=== PATIENT | male | born 1950 | race Caucasian/White ===

== ENCOUNTER → 2019-05-20 | Day surgery (SDC) | payer OTHER ==
[~2019-05-20] VITALS: Ht 180.3 cm; Wt 77.1 kg
[~2019-05-20] MED LIST: LIPITOR10 MG PO
[2019-05-20 10:00] VITALS: BP 126/75
[2019-05-20 10:15] VITALS: BP 125/65
[2019-05-20 10:24] VITALS: BP 122/64
== END | disposition home or self-care (01) ==
LOC: SDC 05-18 12:30
DX: K62.5 Hemorrhage of anus and rectum (principal); D12.5 Benign neoplasm of sigmoid colon; E78.5 Hyperlipidemia, unspecified; Z98.890 Other specified postprocedural states

== ENCOUNTER 2023-12-13 13:25 | Emergency (ER) | payer OTHER ==
[~2023-12-13] VITALS: Ht 180.3 cm; Wt 79.4 kg
[2023-12-13] MEDS ORDERED: SODIUM CHLORIDE 0.9% 1,000 ML IV ONE (14:05)
[2023-12-13] MEDS ORDERED: Ketorolac Tromethamine 15 MG/ML VIAL IV ONE (14:05)
[2023-12-13] MEDS ORDERED: IOHEXOL 300 MG/ML 100 ML VIAL IV ONE (14:10)
[2023-12-13 14:13] LABS: BASO % 0.3 % (0.0-1.0); EOS # 0.1 10*3/uL (0.0-0.4); EOS % 0.9 % (1.0-4.0); HEMATOCRIT 40.3 % (42.0-52.0); LYMPH # 2.3 10*3/uL (1.3-4.4); LYMPH % 29.9 % (27.0-41.0); MEAN CELL VOLUME 90.6 fl (80.0-94.0); MEAN CORPUSCULAR HGB 31.7 pg (27.0-31.0); MEAN PLATELET VOLUME 9.8 fl (9.6-12.3); MONO # 0.7 10*3/uL (0.1-1.0); MONO % 8.8 % (3.0-9.0); NEUT # 4.6 10*3/uL (2.3-7.9); NEUT % 59.8 % (47.0-73.0); PLATELET COUNT AUTOMATED 197 10*3/uL (130-400); RED BLOOD COUNT 4.45 10*6/uL (4.50-5.90); RED CELL DISTRI WIDTH 12.2 % (0-14.5); WHITE BLOOD COUNT 7.7 10*3/uL (4.8-10.8)
[2023-12-13 14:29] LABS: BUN 20 mg/dl (9-23); CHLORIDE 110 mmol/L (98-107); LIPASE 33 U/L (12-53); POTASSIUM 3.7 mmol/L (3.4-5.1)
[2023-12-13 14:52] LABS: BILIRUBIN Negative (Negative); BLOOD Negative (Negative); CLARITY Clear (Clear); COLOR Yellow (Yellow); GLUCOSE Negative (Negative); KETONE Negative (Negative); LEUKO ESTERASE Negative (Negative); NITRITE Negative (Negative); UROBILINOGEN 0.2 E.U./dl (0.0-1.0)
[2023-12-13 15:06] LABS: EPITHELIAL CELLS 0-2; WBC 0-2 wbc/hpf (0-5)
[2023-12-13] MEDS ORDERED: METRONIDAZOLE 500 MG TAB PO ONE (16:40)
[2023-12-13] MEDS ORDERED: Ciprofloxacin Hydrochloride 500 MG TAB PO ONE (16:40)
[2023-12-13] MEDS ORDERED: CIPRO500 MG PO (16:43)
[2023-12-13] MEDS ORDERED: METRONIDAZOLE500 M1 PO (16:43)
== END 2023-12-13 16:47 | disposition home or self-care (01) ==
LOC: ED 13:25
PROVIDERS: Emergency Medicine
DX: K57.32 Diverticulitis of large intestine without perforation or abscess without bleeding (principal); K92.1 Melena; E78.00 Pure hypercholesterolemia, unspecified

== ENCOUNTER 2024-01-08 11:40 | Emergency (ER) | payer OTHER ==
[~2024-01-08] VITALS: Ht 180.3 cm; Wt 79.4 kg
[~2024-01-08 11:40] MED LIST changes: +CIPRO500 MG PO; +METRONIDAZOLE500 M1 PO
[2024-01-08 12:29] LABS: BASO % 0.2 % (0.0-1.0); EOS % 0.2 % (1.0-4.0); HEMATOCRIT 39.4 % (42.0-52.0); LYMPH # 2.6 10*3/uL (1.3-4.4); LYMPH % 22.5 % (27.0-41.0); MEAN CELL VOLUME 88.7 fl (80.0-94.0); MEAN CORPUSCULAR HGB 31.5 pg (27.0-31.0); MEAN CORPUSCULAR HGB CONC 35.5 g/dl (33.0-37.0); MEAN PLATELET VOLUME 10.3 fl (9.6-12.3); MONO # 0.9 10*3/uL (0.1-1.0); MONO % 8.1 % (3.0-9.0); NEUT # 7.8 10*3/uL (2.3-7.9); NEUT % 68.6 % (47.0-73.0); PLATELET COUNT AUTOMATED 218 10*3/uL (130-400); RED BLOOD COUNT 4.44 10*6/uL (4.50-5.90); RED CELL DISTRI WIDTH 12.5 % (0-14.5); WHITE BLOOD COUNT 11.4 10*3/uL (4.8-10.8)
[2024-01-08 12:34] LABS: BILIRUBIN Negative (Negative); BLOOD Negative (Negative); CLARITY Clear (Clear); COLOR Yellow (Yellow); GLUCOSE Negative (Negative); KETONE Trace (Negative); LEUKO ESTERASE Negative (Negative); NITRITE Negative (Negative); UROBILINOGEN 0.2 E.U./dl (0.0-1.0)
[2024-01-08 13:26] LABS: ALKALINE PHOSPHATASE 70 U/L (46-116); BUN 10 mg/dl (9-23); CHLORIDE 108 mmol/L (98-107); POTASSIUM 3.8 mmol/L (3.4-5.1); SGPT/ALT 14 U/L (5-49); TOTAL PROTEIN 7.8 gm/dL (6.0-8.0)
[2024-01-08 13:28] LABS: MUCOUS TRACE; RBC 0-2 rbc/hpf (0-2); WBC 0-2 wbc/hpf (0-5)
[2024-01-08] MEDS ORDERED: MIRALAX17 GM PO (13:51)
== END 2024-01-08 14:05 | disposition home or self-care (01) ==
LOC: ED 11:40
PROVIDERS: Nurse Practitioner
DX: K59.00 Constipation, unspecified (principal); R30.9 Painful micturition, unspecified

== ENCOUNTER 2024-01-18 16:46 | Inpatient (IN) | payer OTHER ==
[~2024-01-18] VITALS: Ht 180.3 cm; Wt 72.8 kg
[~2024-01-18 16:46] MED LIST changes: +MIRALAX17 GM PO; +SODIUM CHLORIDE 0.9% 250 ML BAG IV ONE; +Vancomycin Hydrochloride 1,000 MG VIAL IV ONE; +Vancomycin Hydrochloride 500 MG VIAL IV ONE
[2024-01-18 16:54] VITALS: BP 133/64
[2024-01-18 18:32] LABS: BASO % 0.2 % (0.0-1.0); EOS % 0.1 % (1.0-4.0); HEMATOCRIT 38.5 % (42.0-52.0); LYMPH # 0.9 10*3/uL (1.3-4.4); LYMPH % 7.5 % (27.0-41.0); MEAN CORPUSCULAR HGB 31.5 pg (27.0-31.0); MEAN CORPUSCULAR HGB CONC 35.1 g/dl (33.0-37.0); MEAN PLATELET VOLUME 10.4 fl (9.6-12.3); MONO # 1.1 10*3/uL (0.1-1.0); NEUT % 82.6 % (47.0-73.0); PLATELET COUNT AUTOMATED 214 10*3/uL (130-400); RED BLOOD COUNT 4.28 10*6/uL (4.50-5.90); RED CELL DISTRI WIDTH 12.2 % (0-14.5); WHITE BLOOD COUNT 12.1 10*3/uL (4.8-10.8)
[2024-01-18 18:49] LABS: ALKALINE PHOSPHATASE 75 U/L (46-116); BUN 12 mg/dl (9-23); CHLORIDE 105 mmol/L (98-107); POTASSIUM 3.3 mmol/L (3.4-5.1); SGPT/ALT 15 U/L (5-49); TOTAL PROTEIN 7.8 gm/dL (6.0-8.0)
[2024-01-18 18:52] LABS: ACT PARTIAL THROMBO TIME 27.8 SECONDS (20.0-32.1)
[2024-01-18] MEDS ORDERED: Ketorolac Tromethamine 15 MG/ML VIAL IV ONE (19:00)
[2024-01-18] MEDS ORDERED: SODIUM CHLORIDE 0.9% 1,000 ML IV SCH (19:00)
[2024-01-18] MEDS ORDERED: POTASSIUM CHLORIDE 20 MEQ TAB PO ONE (19:35)
[2024-01-18 19:57] LABS: BILIRUBIN Negative (Negative); BLOOD Negative (Negative); CLARITY Clear (Clear); COLOR Yellow (Yellow); GLUCOSE Negative (Negative); KETONE 1+ (Negative); LEUKO ESTERASE Negative (Negative); NITRITE Negative (Negative); PH 5.5 (4.5-8.0); SPECIFIC GRAVITY 1.015 (1.001-1.030); UROBILINOGEN 0.2 E.U./dl (0.0-1.0)
[2024-01-18 20:04] LABS: MUCOUS 1+; RBC 0-2 rbc/hpf (0-2); WBC 0-2 wbc/hpf (0-5)
[2024-01-18] MEDS ORDERED: Piperacillin Sodium/Tazobact 50 ML IV ONE (20:35)
[2024-01-18] MEDS ORDERED: MORPHINE Sulfate 2 MG/ML SYR IV ONE (20:45)
[2024-01-18] MEDS ORDERED: Magnesium Hydroxide 30 ML UDC PO PRN (21:30)
[2024-01-18] MEDS ORDERED: ACETAMINOPHEN 325 MG TAB PO PRN (21:30)
[2024-01-18] MEDS ORDERED: Ondansetron Hydrochloride 4 MG/2 ML VIAL IV PRN (21:30)
[2024-01-18] MEDS ORDERED: MORPHINE Sulfate 2 MG/ML SYR IV PRN (21:35)
[2024-01-18] MEDS ORDERED: SODIUM CHLORIDE 0.9% 1,000 ML IV ONE (21:35)
[2024-01-18] MEDS ORDERED: Piperacillin Sodium/Tazobact 50 ML IV SCH (22:00)
[2024-01-18 23:05] VITALS: BP 107/46
[2024-01-19] MEDS ORDERED: Piperacillin Sodium/Tazobact 50 ML IV ONE (01:56)
[2024-01-19] MEDS ORDERED: Piperacillin Sodium/Tazobact 50 ML IV SCH (02:00)
[2024-01-19 03:25] VITALS: BP 100/57
[2024-01-19 05:40] VITALS: BP 106/44
[2024-01-19] MEDS ORDERED: MORPHINE Sulfate 2 MG/ML SYR IV ONE (05:55)
[2024-01-19 07:00] LABS: ALKALINE PHOSPHATASE 71 U/L (46-116); BUN 10 mg/dl (9-23); CHLORIDE 109 mmol/L (98-107); POTASSIUM 4.1 mmol/L (3.4-5.1); SGPT/ALT 18 U/L (5-49); TOTAL PROTEIN 7.3 gm/dL (6.0-8.0)
[2024-01-19 07:01] LABS: BASO % 0.3 % (0.0-1.0); EOS % 0.4 % (1.0-4.0); LYMPH # 1.6 10*3/uL (1.3-4.4); LYMPH % 14.2 % (27.0-41.0); MEAN CELL VOLUME 92.5 fl (80.0-94.0); MEAN CORPUSCULAR HGB 32.1 pg (27.0-31.0); MEAN CORPUSCULAR HGB CONC 34.7 g/dl (33.0-37.0); MEAN PLATELET VOLUME 10.7 fl (9.6-12.3); MONO # 0.6 10*3/uL (0.1-1.0); MONO % 5.3 % (3.0-9.0); NEUT # 8.9 10*3/uL (2.3-7.9); NEUT % 79.4 % (47.0-73.0); PLATELET COUNT AUTOMATED 199 10*3/uL (130-400); RED BLOOD COUNT 4.11 10*6/uL (4.50-5.90); RED CELL DISTRI WIDTH 12.7 % (0-14.5); WHITE BLOOD COUNT 11.2 10*3/uL (4.8-10.8)
[2024-01-19 07:59] VITALS: BP 121/54
[2024-01-19] MEDS ORDERED: Acetaminophen/Hydrocodone 5 MG/325 MG TABLET PO PRN (08:00)
[2024-01-19] MEDS ORDERED: Enoxaparin Sodium 40 MG/0.4 ML SYR SC SCH (10:00)
[2024-01-19] MEDS ORDERED: ACETAMINOPHEN 60 ML IV ONE (10:40)
[2024-01-19] MEDS ORDERED: HYDROmorphONE Hydrochloride 0.5 MG/0.5 ML SYRINGE IV ONE (10:40)
[2024-01-19] MEDS ORDERED: HYDROmorphONE Hydrochloride 0.5 MG/0.5 ML SYRINGE IV PRN (10:40)
[2024-01-19] MEDS ORDERED: Vancomycin Hydrochloride 1,000 MG in SODIUM CHLORIDE 0.9% 250 ML IV SCH (15:25)
[2024-01-19 16:00] VITALS: BP 113/51
[2024-01-19] MEDS ORDERED: VANCOMYCIN/WATER FOR INJ (PEG) 250 ML IV SCH (16:00)
[2024-01-19 20:00] VITALS: BP 115/51
[2024-01-20] VITALS: BP 99/37
[2024-01-20 06:44] LABS: BASO % 0.1 % (0.0-1.0); EOS % 0.4 % (1.0-4.0); HEMATOCRIT 33.7 % (42.0-52.0); LYMPH # 1.3 10*3/uL (1.3-4.4); LYMPH % 17.8 % (27.0-41.0); MEAN CELL VOLUME 93.6 fl (80.0-94.0); MEAN CORPUSCULAR HGB 31.4 pg (27.0-31.0); MEAN CORPUSCULAR HGB CONC 33.5 g/dl (33.0-37.0); MEAN PLATELET VOLUME 10.5 fl (9.6-12.3); MONO # 0.7 10*3/uL (0.1-1.0); MONO % 9.9 % (3.0-9.0); NEUT # 5.2 10*3/uL (2.3-7.9); NEUT % 71.5 % (47.0-73.0); PLATELET COUNT AUTOMATED 147 10*3/uL (130-400); RED CELL DISTRI WIDTH 12.4 % (0-14.5); WHITE BLOOD COUNT 7.3 10*3/uL (4.8-10.8)
[2024-01-20 07:15] LABS: ALKALINE PHOSPHATASE 73 U/L (46-116); BUN 7 mg/dl (9-23); CHLORIDE 108 mmol/L (98-107); POTASSIUM 3.7 mmol/L (3.4-5.1); SGPT/ALT 52 U/L (5-49)
[2024-01-20 08:00] VITALS: BP 128/54
[2024-01-20 12:00] VITALS: BP 129/80
[2024-01-20 14:30] VITALS: BP 136/58
[2024-01-20 16:00] VITALS: BP 136/58
[2024-01-20 20:00] VITALS: BP 132/53
[2024-01-21] VITALS: BP 126/59
[2024-01-21 07:06] LABS: BASO % 0.2 % (0.0-1.0); EOS # 0.1 10*3/uL (0.0-0.4); EOS % 0.9 % (1.0-4.0); LYMPH # 1.7 10*3/uL (1.3-4.4); LYMPH % 21.4 % (27.0-41.0); MEAN CELL VOLUME 92.2 fl (80.0-94.0); MEAN CORPUSCULAR HGB 31.6 pg (27.0-31.0); MEAN CORPUSCULAR HGB CONC 34.2 g/dl (33.0-37.0); MEAN PLATELET VOLUME 10.8 fl (9.6-12.3); MONO % 12.5 % (3.0-9.0); NEUT # 5.2 10*3/uL (2.3-7.9); NEUT % 64.6 % (47.0-73.0); PLATELET COUNT AUTOMATED 159 10*3/uL (130-400); RED BLOOD COUNT 3.58 10*6/uL (4.50-5.90); RED CELL DISTRI WIDTH 12.6 % (0-14.5)
[2024-01-21 07:21] LABS: BUN 7 mg/dl (9-23); CHLORIDE 108 mmol/L (98-107); POTASSIUM 3.7 mmol/L (3.4-5.1)
[2024-01-21 08:00] VITALS: BP 129/60
[2024-01-21] MEDS ORDERED: PSYLLIUM 1 PCK PACKET PO SCH (10:00)
[2024-01-21 12:00] VITALS: BP 138/63
[2024-01-21 16:00] VITALS: BP 126/59
[2024-01-21 20:00] VITALS: BP 124/78
[2024-01-22] VITALS: BP 118/57
[2024-01-22 08:00] VITALS: BP 128/52
[2024-01-22] MEDS ORDERED: VANCOMYCIN/WATER FOR INJ (PEG) 300 ML IV SCH (10:00)
[2024-01-22 12:00] VITALS: BP 124/59
[2024-01-22] MEDS ORDERED: METAMUCIL FIBE3.4 GM PO (13:18)
[2024-01-22] MEDS ORDERED: AMOX-CLAV 875-1 EACH PO ×2 (13:18→14:11)
[2024-01-22] MEDS ORDERED: HYDROCODONE-AC1 EAC1 PO (13:18)
[2024-01-22] MEDS ORDERED: LEVOFLOXACIN750 M2 PO (14:00)
[2024-01-29 10:08] LABS: ORGANISM ID Final report (.)
== END 2024-01-22 15:31 | disposition home or self-care (01) | DRG 872 ==
LOC: ED 16:46 → EDHOLD 21:20 → 4E 21:20 → EDHOLD 01-20 09:08 → 4E 01-20 12:03
PROVIDERS: Internal Medicine; Student in an Organized Health Care Education/Training Program; ADMIT Student in an Organized Health Care Education/Training Program; ATTEND Student in an Organized Health Care Education/Training Program
DX: A41.89 Other specified sepsis (principal); E87.1 Hypo-osmolality and hyponatremia; K57.32 Diverticulitis of large intestine without perforation or abscess without bleeding; E87.6 Hypokalemia; D64.9 Anemia, unspecified; R73.9 Hyperglycemia, unspecified; E78.2 Mixed hyperlipidemia; N20.0 Calculus of kidney; Z82.49 Family history of ischemic heart disease and other diseases of the circulatory system

== ENCOUNTER 2024-02-05 10:08 | Inpatient (IN) | payer OTHER ==
[~2024-02-05] VITALS: Ht 180.3 cm; Wt 72.7 kg
[~2024-02-05 10:08] MED LIST changes: +AMOX-CLAV 875-1 EACH PO; +HYDROCODONE-AC1 EAC1 PO; +LEVOFLOXACIN750 M2 PO; +METAMUCIL FIBE3.4 GM PO; -SODIUM CHLORIDE 0.9% 250 ML BAG IV ONE; -Vancomycin Hydrochloride 1,000 MG VIAL IV ONE; -Vancomycin Hydrochloride 500 MG VIAL IV ONE
[2024-02-05 10:20] VITALS: BP 134/50
[2024-02-05] MEDS ORDERED: METAMUCIL660 GM PO (10:34)
[2024-02-05] MEDS ORDERED: SODIUM CHLORIDE 0.9% 1,000 ML IV ONE ×2 (10:35→14:35)
[2024-02-05] MEDS ORDERED: MORPHINE Sulfate 2 MG/ML SYR IV ONE ×2 (10:40→12:35)
[2024-02-05 11:02] LABS: BILIRUBIN Negative (Negative); BLOOD Negative (Negative); CLARITY Clear (Clear); COLOR Yellow (Yellow); GLUCOSE Negative (Negative); KETONE Negative (Negative); LEUKO ESTERASE Negative (Negative); NITRITE Negative (Negative); UROBILINOGEN 0.2 E.U./dl (0.0-1.0)
[2024-02-05] MEDS ORDERED: IOHEXOL 300 MG/ML 100 ML VIAL IV ONE (11:05)
[2024-02-05 11:06] LABS: BASO % 0.3 % (0.0-1.0); EOS # 0.1 10*3/uL (0.0-0.4); EOS % 0.5 % (1.0-4.0); HEMATOCRIT 36.4 % (42.0-52.0); LYMPH # 2.7 10*3/uL (1.3-4.4); LYMPH % 21.7 % (27.0-41.0); MEAN CELL VOLUME 90.5 fl (80.0-94.0); MEAN CORPUSCULAR HGB 31.6 pg (27.0-31.0); MEAN CORPUSCULAR HGB CONC 34.9 g/dl (33.0-37.0); MEAN PLATELET VOLUME 9.6 fl (9.6-12.3); MONO % 7.7 % (3.0-9.0); NEUT # 8.7 10*3/uL (2.3-7.9); NEUT % 69.4 % (47.0-73.0); PLATELET COUNT AUTOMATED 286 10*3/uL (130-400); RED BLOOD COUNT 4.02 10*6/uL (4.50-5.90); RED CELL DISTRI WIDTH 12.6 % (0-14.5); WHITE BLOOD COUNT 12.6 10*3/uL (4.8-10.8)
[2024-02-05 11:25] LABS: BUN 12 mg/dl (9-23); CHLORIDE 103 mmol/L (98-107); LIPASE 30 U/L (12-53); POTASSIUM 3.5 mmol/L (3.4-5.1)
[2024-02-05 11:40] LABS: BACTERIA 1+; MUCOUS 1+
[2024-02-05 12:00] VITALS: BP 126/54
[2024-02-05] MEDS ORDERED: Piperacillin Sodium/Tazobact 50 ML IV ONE (13:25)
[2024-02-05] MEDS ORDERED: ACETAMINOPHEN 650 MG SUPP R PRN (14:30)
[2024-02-05] MEDS ORDERED: Magnesium Hydroxide 30 ML UDC PO PRN (14:30)
[2024-02-05] MEDS ORDERED: TEMAZEPAM 15 MG CAP PO PRN (14:30)
[2024-02-05] MEDS ORDERED: ACETAMINOPHEN 325 MG TAB PO PRN (14:30)
[2024-02-05] MEDS ORDERED: BISACODYL 5 MG TAB PO PRN (14:30)
[2024-02-05] MEDS ORDERED: BISACODYL 10 MG SUPP R PRN (14:30)
[2024-02-05] MEDS ORDERED: Ketorolac Tromethamine 30 MG/ML VIAL IV ONE (14:35)
[2024-02-05 16:00] VITALS: BP 126/54
[2024-02-05] MEDS ORDERED: HYDROmorphONE Hydrochloride 1 MG/ML SYR IV SCH (16:00)
[2024-02-05] MEDS ORDERED: HYDROmorphONE Hydrochloride 1 MG/ML SYR IV PRN (17:10)
[2024-02-05] MEDS ORDERED: Piperacillin Sodium/Tazobact 4.5 GM,IV 1 EA in SODIUM CHLORIDE 0.9% 100 ML IV SCH (18:00)
[2024-02-05 18:51] VITALS: BP 115/55
[2024-02-05 19:42] VITALS: BP 118/54
[2024-02-05 20:00] VITALS: BP 126/54
[2024-02-06] VITALS (8 sets, daily range): BP systolic 104–128; BP diastolic 48–54
[2024-02-06] MEDS ORDERED: SODIUM CHLORIDE 0.9% 1,000 ML IV ONE ×2 (00:35→11:55)
[2024-02-06 06:47] LABS: BASO % 0.3 % (0.0-1.0); EOS # 0.1 10*3/uL (0.0-0.4); HEMATOCRIT 31.6 % (42.0-52.0); LYMPH # 2.3 10*3/uL (1.3-4.4); LYMPH % 23.9 % (27.0-41.0); MEAN CELL VOLUME 93.5 fl (80.0-94.0); MEAN CORPUSCULAR HGB 30.8 pg (27.0-31.0); MEAN CORPUSCULAR HGB CONC 32.9 g/dl (33.0-37.0); MEAN PLATELET VOLUME 9.9 fl (9.6-12.3); MONO # 0.9 10*3/uL (0.1-1.0); MONO % 9.3 % (3.0-9.0); NEUT # 6.3 10*3/uL (2.3-7.9); NEUT % 65.2 % (47.0-73.0); PLATELET COUNT AUTOMATED 256 10*3/uL (130-400); RED BLOOD COUNT 3.38 10*6/uL (4.50-5.90); RED CELL DISTRI WIDTH 12.8 % (0-14.5); WHITE BLOOD COUNT 9.7 10*3/uL (4.8-10.8)
[2024-02-06 07:12] LABS: ALKALINE PHOSPHATASE 75 U/L (46-116); BUN 9 mg/dl (9-23); CHLORIDE 110 mmol/L (98-107); POTASSIUM 4.2 mmol/L (3.4-5.1); SGPT/ALT 10 U/L (5-49); TOTAL PROTEIN 6.2 gm/dL (6.0-8.0)
[2024-02-06] MEDS ORDERED: Enoxaparin Sodium 40 MG/0.4 ML SYR SC SCH (10:00)
[2024-02-06] MEDS ORDERED: DOCUSATE SODIUM 100 MG CAP PO ONE (10:50)
[2024-02-07] VITALS: BP 127/50
[2024-02-07 07:01] LABS: BASO % 0.4 % (0.0-1.0); EOS # 0.1 10*3/uL (0.0-0.4); EOS % 1.6 % (1.0-4.0); HEMATOCRIT 34.9 % (42.0-52.0); LYMPH # 2.3 10*3/uL (1.3-4.4); LYMPH % 32.1 % (27.0-41.0); MEAN CELL VOLUME 94.8 fl (80.0-94.0); MEAN CORPUSCULAR HGB 30.4 pg (27.0-31.0); MEAN CORPUSCULAR HGB CONC 32.1 g/dl (33.0-37.0); MEAN PLATELET VOLUME 9.7 fl (9.6-12.3); MONO # 0.7 10*3/uL (0.1-1.0); MONO % 9.1 % (3.0-9.0); NEUT # 4.1 10*3/uL (2.3-7.9); NEUT % 56.5 % (47.0-73.0); PLATELET COUNT AUTOMATED 261 10*3/uL (130-400); RED BLOOD COUNT 3.68 10*6/uL (4.50-5.90); RED CELL DISTRI WIDTH 12.4 % (0-14.5); WHITE BLOOD COUNT 7.3 10*3/uL (4.8-10.8)
[2024-02-07 07:13] LABS: BUN 5 mg/dl (9-23); CHLORIDE 107 mmol/L (98-107)
[2024-02-07 08:00] VITALS: BP 133/57
[2024-02-07] MEDS ORDERED: MUPIROCIN 15 GM TUBE T SCH (10:00)
[2024-02-07 12:00] VITALS: BP 141/55
[2024-02-07 16:00] VITALS: BP 133/60
[2024-02-07] MEDS ORDERED: fentaNYL CITRATE 100 MCG/2 ML VIAL IV PRN (17:40)
[2024-02-07] MEDS ORDERED: Acetaminophen/Hydrocodone 5 MG/325 MG TABLET PO PRN (17:45)
[2024-02-07 20:00] VITALS: BP 154/61
[2024-02-07] MEDS ORDERED: HYDROmorphONE Hydrochloride 1 MG/ML SYR IV PRN (21:20)
[2024-02-08] VITALS: BP 125/58
[2024-02-08 07:02] LABS: BASO % 0.4 % (0.0-1.0); EOS # 0.2 10*3/uL (0.0-0.4); EOS % 2.1 % (1.0-4.0); HEMATOCRIT 33.3 % (42.0-52.0); LYMPH # 2.8 10*3/uL (1.3-4.4); LYMPH % 34.5 % (27.0-41.0); MEAN CELL VOLUME 94.3 fl (80.0-94.0); MEAN CORPUSCULAR HGB 30.6 pg (27.0-31.0); MEAN CORPUSCULAR HGB CONC 32.4 g/dl (33.0-37.0); MEAN PLATELET VOLUME 9.6 fl (9.6-12.3); MONO # 0.8 10*3/uL (0.1-1.0); MONO % 9.6 % (3.0-9.0); NEUT # 4.4 10*3/uL (2.3-7.9); NEUT % 53.2 % (47.0-73.0); PLATELET COUNT AUTOMATED 260 10*3/uL (130-400); RED BLOOD COUNT 3.53 10*6/uL (4.50-5.90); RED CELL DISTRI WIDTH 12.2 % (0-14.5); WHITE BLOOD COUNT 8.2 10*3/uL (4.8-10.8)
[2024-02-08 07:19] LABS: CHLORIDE 107 mmol/L (98-107); POTASSIUM 3.8 mmol/L (3.4-5.1)
[2024-02-08 07:41] LABS: BUN < 5 mg/dl (9-23)
[2024-02-08 08:00] VITALS: BP 112/54
[2024-02-08 12:00] VITALS: BP 139/64
[2024-02-08] MEDS ORDERED: Polyethylene Glycol 3350 238 GM BOT PO SCH (18:00)
[2024-02-08 18:29] VITALS: BP 125/63
[2024-02-09] VITALS: BP 128/60
[2024-02-09] MEDS ORDERED: METRONIDAZOLE 500 MG TAB PO SCH
[2024-02-09 05:39] LABS: CHLORIDE 106 mmol/L (98-107)
[2024-02-09 05:44] LABS: BUN < 5 mg/dl (9-23)
[2024-02-09 06:12] LABS: BASO % 0.4 % (0.0-1.0); EOS # 0.2 10*3/uL (0.0-0.4); HEMATOCRIT 31.6 % (42.0-52.0); LYMPH % 27.3 % (27.0-41.0); MEAN CELL VOLUME 94.9 fl (80.0-94.0); MEAN CORPUSCULAR HGB 30.9 pg (27.0-31.0); MEAN CORPUSCULAR HGB CONC 32.6 g/dl (33.0-37.0); MONO # 0.8 10*3/uL (0.1-1.0); MONO % 11.1 % (3.0-9.0); NEUT # 4.4 10*3/uL (2.3-7.9); NEUT % 58.9 % (47.0-73.0); PLATELET COUNT AUTOMATED 263 10*3/uL (130-400); RED BLOOD COUNT 3.33 10*6/uL (4.50-5.90); RED CELL DISTRI WIDTH 12.2 % (0-14.5); WHITE BLOOD COUNT 7.5 10*3/uL (4.8-10.8)
[2024-02-09 08:00] VITALS: BP 130/54
[2024-02-09 12:00] VITALS: BP 146/45
[2024-02-09 16:00] VITALS: BP 138/62
[2024-02-09 20:00] VITALS: BP 143/77
[2024-02-09] MEDS ORDERED: POTASSIUM CH/0.45 NS 1,000 ML IV SCH (20:00)
[2024-02-10] VITALS (10 sets, daily range): BP systolic 117–141; BP diastolic 49–70
[2024-02-10 04:52] LABS: BUN 6 mg/dl (9-23); CHLORIDE 105 mmol/L (98-107); POTASSIUM 3.4 mmol/L (3.4-5.1)
[2024-02-10] MEDS ORDERED: METRONIDAZOLE 100 ML IV ONE (06:00)
[2024-02-10] MEDS ORDERED: ceFAZolin sodium/sodium chlor 20 ML IV ONE (06:00)
[2024-02-10 06:08] LABS: BASO % 0.3 % (0.0-1.0); EOS # 0.1 10*3/uL (0.0-0.4); EOS % 1.6 % (1.0-4.0); HEMATOCRIT 32.6 % (42.0-52.0); LYMPH # 1.8 10*3/uL (1.3-4.4); LYMPH % 22.9 % (27.0-41.0); MEAN CELL VOLUME 92.9 fl (80.0-94.0); MEAN CORPUSCULAR HGB 30.8 pg (27.0-31.0); MEAN CORPUSCULAR HGB CONC 33.1 g/dl (33.0-37.0); MEAN PLATELET VOLUME 10.1 fl (9.6-12.3); MONO # 0.8 10*3/uL (0.1-1.0); MONO % 9.8 % (3.0-9.0); NEUT % 65.3 % (47.0-73.0); PLATELET COUNT AUTOMATED 262 10*3/uL (130-400); RED BLOOD COUNT 3.51 10*6/uL (4.50-5.90); RED CELL DISTRI WIDTH 12.1 % (0-14.5); WHITE BLOOD COUNT 7.7 10*3/uL (4.8-10.8)
[2024-02-10] MEDS ORDERED: BUPIVACAINE 0.5% 10 ML VIAL ONE (07:36)
[2024-02-10] MEDS ORDERED: BUPIVACAINE 0.5% 30 ML IV ONE (10:04)
[2024-02-10] MEDS ORDERED: MORPHINE Sulfate 2 MG/ML SYR IV PRN (10:05)
[2024-02-10] MEDS ORDERED: Lactated Ringer's Solution 1,000 ML IV ONE ×4 (10:05→13:30)
[2024-02-10] MEDS ORDERED: HYDROmorphONE Hydrochloride 0.5 MG/0.5 ML SYRINGE IV PRN (10:05)
[2024-02-10] MEDS ORDERED: ACETAMINOPHEN 100 ML IV ONE (10:43)
[2024-02-10] MEDS ORDERED: HYDROmorphONE Hydrochloride 0.5 MG/0.5 ML SYRINGE ONE ×2 (14:29→14:42)
[2024-02-10] MEDS ORDERED: Naloxone Hydrochloride 0.4 MG/ML VIAL IV PRN (15:40)
[2024-02-10] MEDS ORDERED: SODIUM CHLORIDE 0.9% IV SCH ×2 (15:40→16:30)
[2024-02-10] MEDS ORDERED: HYDROMORPHONE IV SCH (15:40)
[2024-02-10] MEDS ORDERED: Dexamethasone Sodium Phospha 4 MG/ML VIAL IV ONE (15:47)
[2024-02-10] MEDS ORDERED: Ondansetron Hydrochloride 4 MG/2 ML VIAL IV ONE (15:47)
[2024-02-10] MEDS ORDERED: Lidocaine Hydrochloride 5 ML VIAL IV ONE (15:47)
[2024-02-10] MEDS ORDERED: SEVOFLURANE 250 ML BOT INH ONE (15:47)
[2024-02-10] MEDS ORDERED: ROCURONIUM BROMIDE 50 MG/5 ML SYRINGE IV ONE (15:47)
[2024-02-10] MEDS ORDERED: Ketorolac Tromethamine 30 MG/ML VIAL IV ONE (15:47)
[2024-02-10] MEDS ORDERED: fentaNYL CITRATE 100 MCG/2 ML VIAL IV ONE (15:47)
[2024-02-10] MEDS ORDERED: SUGAMMADEX SODIUM 200 MG/2 ML VIAL IV ONE (15:47)
[2024-02-10] MEDS ORDERED: PROPOFOL 200 MG/20 ML VIAL IV ONE (15:47)
[2024-02-10] MEDS ORDERED: MAGNESIUM SULFATE 1 GM/2 ML VIAL IV ONE (15:47)
[2024-02-10] MEDS ORDERED: Ketamine Hydrochloride 500 MG/10 ML VIAL IV ONE (15:47)
[2024-02-10] MEDS ORDERED: [UNRECOGNIZED DRUG - OTHER] IV SCH (16:30)
[2024-02-10] MEDS ORDERED: SODIUM CHLORIDE 0.9% 500 ML IV ONE (18:13)
[2024-02-11] VITALS: BP 131/64
[2024-02-11 06:21] LABS: BASO % 0.1 % (0.0-1.0); HEMATOCRIT 28.5 % (42.0-52.0); LYMPH # 1.8 10*3/uL (1.3-4.4); LYMPH % 15.8 % (27.0-41.0); MEAN CELL VOLUME 91.3 fl (80.0-94.0); MEAN CORPUSCULAR HGB 31.1 pg (27.0-31.0); MONO # 1.2 10*3/uL (0.1-1.0); MONO % 10.5 % (3.0-9.0); NEUT # 8.6 10*3/uL (2.3-7.9); NEUT % 73.4 % (47.0-73.0); PLATELET COUNT AUTOMATED 258 10*3/uL (130-400); RED BLOOD COUNT 3.12 10*6/uL (4.50-5.90); WHITE BLOOD COUNT 11.7 10*3/uL (4.8-10.8)
[2024-02-11 06:48] LABS: BUN 12 mg/dl (9-23); CHLORIDE 105 mmol/L (98-107)
[2024-02-11 08:00] VITALS: BP 135/60
[2024-02-11] MEDS ORDERED: SODIUM CHLORIDE 0.9% 500 ML IV ONE (10:28)
[2024-02-11 12:00] VITALS: BP 109/52
[2024-02-11 15:37] VITALS: BP 110/49
[2024-02-11 20:00] VITALS: BP 127/59
[2024-02-11] MEDS ORDERED: SODIUM CHLORIDE 0.9% IV SCH (22:45)
[2024-02-11] MEDS ORDERED: [UNRECOGNIZED DRUG - OTHER] IV SCH (22:45)
[2024-02-12] VITALS: BP 118/45
[2024-02-12] MEDS ORDERED: SODIUM CHLORIDE 0.9% 500 ML IV SCH (03:10)
[2024-02-12] MEDS ORDERED: SODIUM CHLORIDE 0.9% 500 ML IV ONE (03:10)
[2024-02-12 05:31] LABS: BUN 10 mg/dl (9-23); CHLORIDE 104 mmol/L (98-107); POTASSIUM 3.6 mmol/L (3.4-5.1)
[2024-02-12 06:04] LABS: BASO % 0.2 % (0.0-1.0); EOS # 0.1 10*3/uL (0.0-0.4); HEMATOCRIT 28.5 % (42.0-52.0); LYMPH # 2.5 10*3/uL (1.3-4.4); LYMPH % 27.9 % (27.0-41.0); MEAN CELL VOLUME 91.1 fl (80.0-94.0); MEAN CORPUSCULAR HGB 30.7 pg (27.0-31.0); MEAN CORPUSCULAR HGB CONC 33.7 g/dl (33.0-37.0); MONO # 0.9 10*3/uL (0.1-1.0); MONO % 10.4 % (3.0-9.0); NEUT # 5.3 10*3/uL (2.3-7.9); NEUT % 60.2 % (47.0-73.0); PLATELET COUNT AUTOMATED 235 10*3/uL (130-400); RED BLOOD COUNT 3.13 10*6/uL (4.50-5.90); RED CELL DISTRI WIDTH 12.4 % (0-14.5); WHITE BLOOD COUNT 8.8 10*3/uL (4.8-10.8)
[2024-02-12 08:00] VITALS: BP 154/56
[2024-02-12] MEDS ORDERED: Enoxaparin Sodium 40 MG/0.4 ML SYR SC SCH (10:00)
[2024-02-12 12:00] VITALS: BP 142/63
[2024-02-12 16:00] VITALS: BP 150/64
[2024-02-12 20:00] VITALS: BP 134/63
[2024-02-13] VITALS: BP 138/75
[2024-02-13] MEDS ORDERED: Ondansetron Hydrochloride 4 MG/2 ML VIAL IV ONE (05:45)
[2024-02-13 08:00] VITALS: BP 101/75
[2024-02-13] MEDS ORDERED: Acetaminophen/Oxycodone 5 MG/325 MG TABLET PO PRN (09:15)
[2024-02-13 09:45] LABS: BASO % 0.2 % (0.0-1.0); EOS % 0.1 % (1.0-4.0); HEMATOCRIT 39.6 % (42.0-52.0); LYMPH # 1.6 10*3/uL (1.3-4.4); LYMPH % 13.9 % (27.0-41.0); MEAN CELL VOLUME 90.4 fl (80.0-94.0); MEAN CORPUSCULAR HGB 30.8 pg (27.0-31.0); MEAN CORPUSCULAR HGB CONC 34.1 g/dl (33.0-37.0); MEAN PLATELET VOLUME 9.6 fl (9.6-12.3); MONO # 0.7 10*3/uL (0.1-1.0); MONO % 5.9 % (3.0-9.0); NEUT # 9.1 10*3/uL (2.3-7.9); NEUT % 79.5 % (47.0-73.0); RED BLOOD COUNT 4.38 10*6/uL (4.50-5.90); RED CELL DISTRI WIDTH 12.2 % (0-14.5); WHITE BLOOD COUNT 11.4 10*3/uL (4.8-10.8)
[2024-02-13 09:46] LABS: PLATELET COUNT AUTOMATED 381 10*3/uL (130-400)
[2024-02-13 09:47] LABS: BUN 13 mg/dl (9-23); CHLORIDE 102 mmol/L (98-107)
[2024-02-13 12:00] VITALS: BP 141/64
[2024-02-13 16:00] VITALS: BP 138/64
[2024-02-13 20:00] VITALS: BP 121/61
[2024-02-14] VITALS: BP 143/58
[2024-02-14 05:42] LABS: BUN 11 mg/dl (9-23); CHLORIDE 102 mmol/L (98-107); POTASSIUM 3.4 mmol/L (3.4-5.1)
[2024-02-14 06:15] LABS: BASO % 0.2 % (0.0-1.0); EOS # 0.2 10*3/uL (0.0-0.4); EOS % 2.5 % (1.0-4.0); HEMATOCRIT 31.2 % (42.0-52.0); LYMPH # 2.1 10*3/uL (1.3-4.4); LYMPH % 22.3 % (27.0-41.0); MEAN CELL VOLUME 88.9 fl (80.0-94.0); MEAN CORPUSCULAR HGB 31.1 pg (27.0-31.0); MEAN CORPUSCULAR HGB CONC 34.9 g/dl (33.0-37.0); MEAN PLATELET VOLUME 10.1 fl (9.6-12.3); MONO # 0.9 10*3/uL (0.1-1.0); MONO % 9.8 % (3.0-9.0); NEUT % 64.9 % (47.0-73.0); PLATELET COUNT AUTOMATED 282 10*3/uL (130-400); RED BLOOD COUNT 3.51 10*6/uL (4.50-5.90); RED CELL DISTRI WIDTH 12.3 % (0-14.5); WHITE BLOOD COUNT 9.2 10*3/uL (4.8-10.8)
[2024-02-14 08:00] VITALS: BP 135/51
[2024-02-14 12:00] VITALS: BP 147/63
[2024-02-14 16:00] VITALS: BP 119/57
[2024-02-14 20:00] VITALS: BP 122/50
[2024-02-15] VITALS: BP 120/54
[2024-02-15 05:53] LABS: BUN 13 mg/dl (9-23); CHLORIDE 107 mmol/L (98-107); POTASSIUM 3.2 mmol/L (3.4-5.1)
[2024-02-15 06:04] LABS: BASO % 0.4 % (0.0-1.0); EOS # 0.3 10*3/uL (0.0-0.4); EOS % 4.7 % (1.0-4.0); HEMATOCRIT 29.7 % (42.0-52.0); LYMPH # 2.4 10*3/uL (1.3-4.4); MEAN CORPUSCULAR HGB 30.7 pg (27.0-31.0); MEAN CORPUSCULAR HGB CONC 33.3 g/dl (33.0-37.0); MONO # 0.7 10*3/uL (0.1-1.0); NEUT # 3.7 10*3/uL (2.3-7.9); NEUT % 51.5 % (47.0-73.0); PLATELET COUNT AUTOMATED 266 10*3/uL (130-400); RED BLOOD COUNT 3.22 10*6/uL (4.50-5.90); RED CELL DISTRI WIDTH 12.3 % (0-14.5); WHITE BLOOD COUNT 7.2 10*3/uL (4.8-10.8)
[2024-02-15 06:28] LABS: MEAN CELL VOLUME 92.2 fl (80.0-94.0)
[2024-02-15 08:00] VITALS: BP 124/50
[2024-02-15] MEDS ORDERED: POTASSIUM CHLORIDE 20 MEQ TAB PO ONE (08:15)
[2024-02-15 11:53] VITALS: BP 126/57
[2024-02-15] MEDS ORDERED: Ondansetron4 MG PO (12:13)
[2024-02-15] MEDS ORDERED: OXYCODONE-ACET1 EAC3 PO (12:13)
== END 2024-02-15 14:50 | disposition home or self-care (01) | DRG 329 ==
LOC: ED 10:08 → EDHOLD 13:29 → 4E 13:29 → EDHOLD 13:30 → 4E 02-06 16:24 → ICCU 02-08 15:06 → 4E 02-10 07:04
PROVIDERS: Internal Medicine; Student in an Organized Health Care Education/Training Program; Surgery; ADMIT Internal Medicine; ATTEND Internal Medicine
PROC: 0DBN4ZZ Excision of Sigmoid Colon, Percutaneous Endoscopic Approach (ICD-10-PCS; principal; 2024-02-10)
DX: K57.32 Diverticulitis of large intestine without perforation or abscess without bleeding (principal); E43 Unspecified severe protein-calorie malnutrition; E87.1 Hypo-osmolality and hyponatremia; E87.20 Acidosis, unspecified; K91.89 Other postprocedural complications and disorders of digestive system; K56.7 Ileus, unspecified; D72.829 Elevated white blood cell count, unspecified; E78.2 Mixed hyperlipidemia; R73.9 Hyperglycemia, unspecified; S61.206A Unspecified open wound of right little finger without damage to nail, initial encounter; S01.301A Unspecified open wound of right ear, initial encounter; S51.801A Unspecified open wound of right forearm, initial encounter; N40.0 Benign prostatic hyperplasia without lower urinary tract symptoms; D64.9 Anemia, unspecified; Z79.899 Other long term (current) drug therapy; Z79.01 Long term (current) use of anticoagulants; Z79.2 Long term (current) use of antibiotics; Z68.22 Body mass index [BMI] 22.0-22.9, adult; Z82.49 Family history of ischemic heart disease and other diseases of the circulatory system; Z87.442 Personal history of urinary calculi; X58.XXXA Exposure to other specified factors, initial encounter; Y93.89 Activity, other specified; Y92.89 Other specified places as the place of occurrence of the external cause; Y99.8 Other external cause status

== ENCOUNTER 2024-02-20 21:44 | Emergency (ER) | payer OTHER ==
[~2024-02-20] VITALS: Ht 180.3 cm; Wt 72.6 kg
[~2024-02-20 21:44] MED LIST changes: +METAMUCIL660 GM PO; +OXYCODONE-ACET1 EAC3 PO; +Ondansetron4 MG PO
[2024-02-20 22:38] LABS: BILIRUBIN Negative (Negative); BLOOD Negative (Negative); CLARITY Cloudy (Clear); COLOR Dark Yellow (Yellow); GLUCOSE Negative (Negative); KETONE Negative (Negative); LEUKO ESTERASE Negative (Negative); NITRITE Negative (Negative); PH 5.5 (4.5-8.0); UROBILINOGEN 0.2 E.U./dl (0.0-1.0)
[2024-02-20 22:47] LABS: RBC 21-30 rbc/hpf (0-2); URIC ACID CRYSTALS 1+; WBC 0-2 wbc/hpf (0-5)
[2024-02-20] MEDS ORDERED: Acetaminophen/Hydrocodone 5 MG/325 MG TABLET PO ONE (22:55)
[2024-02-20] MEDS ORDERED: Ondansetron Hydrochloride 4 MG TAB SL ONE (22:55)
== END 2024-02-20 23:27 | disposition home or self-care (01) ==
LOC: ED 21:44
PROVIDERS: Internal Medicine
DX: R33.9 Retention of urine, unspecified (principal); E78.00 Pure hypercholesterolemia, unspecified; F12.90 Cannabis use, unspecified, uncomplicated; Z87.442 Personal history of urinary calculi; Z98.890 Other specified postprocedural states

== ENCOUNTER 2024-03-20 21:10 | Emergency (ER) | payer OTHER ==
[~2024-03-20] VITALS: Ht 180.3 cm; Wt 68.0 kg
[2024-03-20] MEDS ORDERED: FLOMAX0.4 MG PO (21:32)
[2024-03-20] MEDS ORDERED: Lidocaine Hydrochloride 10 ML SYR UR ONE (21:40)
[2024-03-20 21:53] LABS: BILIRUBIN Negative (Negative); BLOOD 2+ (Negative); CLARITY Turbid (Clear); COLOR Yellow (Yellow); GLUCOSE Negative (Negative); KETONE Negative (Negative); LEUKO ESTERASE 3+ (Negative); NITRITE Positive (Negative); PH 6.5 (4.5-8.0); UROBILINOGEN 0.2 E.U./dl (0.0-1.0)
[2024-03-20 21:59] LABS: BACTERIA 2+; RBC 16-20 rbc/hpf (0-2); WBC TNTC wbc/hpf (0-5)
[2024-03-20] MEDS ORDERED: CIPRO500 MG PO (22:05)
== END 2024-03-20 22:27 | disposition home or self-care (01) ==
LOC: ED 21:10
PROVIDERS: Nurse Practitioner Family
DX: R33.9 Retention of urine, unspecified (principal); N39.0 Urinary tract infection, site not specified; E87.1 Hypo-osmolality and hyponatremia; E78.5 Hyperlipidemia, unspecified; D64.9 Anemia, unspecified; E78.00 Pure hypercholesterolemia, unspecified; F12.90 Cannabis use, unspecified, uncomplicated; Z87.442 Personal history of urinary calculi; Z98.890 Other specified postprocedural states